=== PATIENT | female | born 1995 | race Caucasian/White ===

== ENCOUNTER 2019-04-03 02:20 | Inpatient (IN) ==
[2019-04-03] MEDS ORDERED: LACTATED RINGER'S 1,000 ML IV PRN (03:11)
[2019-04-03] MEDS ORDERED: PENICILLIN G POTASSIUM 6 MU in DEXTROSE 5% 250 ML IV ONE (03:13)
[2019-04-03 03:40] LABS: Hematocrit (blood only) 34.6 % (37-47); Hemoglobin 11.5 g/dL (12.0-16.0); Mean Corpuscular Hemoglobin 28.7 pg (25-34); Mean Corpuscular Volume 86.3 fL (80-100); Mean Platelet Volume 10.6 fL (7.4-10.4); Platelet Count 351 K/uL (130-400); RDW Coefficient of Variation 14.4 % (11.5-14.5); RDW Standard Deviation 44.4 fL (36.4-46.3); Red Blood Count 4.01 M/uL (4.2-5.4); White Blood Count 15.68 K/uL (4.8-10.8)
[2019-04-03 03:43] LABS: Mean Corpuscular Hgb Conc 33.2 g/dL (32-36)
[2019-04-03] MEDS ORDERED: BUTORPHANOL TARTRATE 1 MG/ML VIAL IV PRN (06:30)
[2019-04-03] MEDS ORDERED: fentaNYL 2MCG/ML ROPIV 1.25MG/ML 100 ML BAG EPI ONE (07:40)
[2019-04-03] MEDS ORDERED: ePHEDrine sulfate 50 MG/ML AMP ONE (07:40)
[2019-04-03] MEDS ORDERED: fentaNYL citrate 100 MCG/2 ML VIAL ONE (07:40)
[2019-04-03] MEDS ORDERED: BUPIVACAINE 0.25% 30 ML VIAL ONE ×2 (07:40→10:11)
[2019-04-03] MEDS: PENICILLIN G POTASSIUM 3 MU in DEXTROSE 5% 100 ML IV PRN ×2 (07:50→11:51)
--- NOTE | 2019-04-03 07:52 | Anesthesiology Consultation ---
Date of Service April 03, 2019 Assessment & Plan (1) Encounter for pre-operative examination: Chart Review Chart Review: Acceptable Risk for Labor Epidural Consults Requested none ASA ASA2 Proposed Anesthesia Anesthesia Type: Labor Epidural Risk / Benefits Reviewed With: PT / POA / Parent / Guardian, Accepts Plan and Informed Consent Obtained History Height/Weight Height: 5 ft 5 in Weight: 86.636 kg Allergies Allergy/AdvReac Type Severity Reaction Status Date / Time oxycodone Allergy Intermediate Rash/Hives Verified 04/03/19 02:34 Medications Home Medications Medication Instructions Recorded Confirmed Last Taken PNV cmb#95-ferrous fumarate-FA 1 tab PO DAILY 10/08/18 04/03/19 04/02/19 18:00 [] ferrous sulfate [iron] 325 mg PO DAILY 04/03/19 04/03/19 04/02/19 08:00 Active Medications Generic Name Dose Route Start Last Admin Trade Name Freq PRN Reason Stop Dose Admin Lactated Ringer's 1,000 mls @ 125 mls/hr 04/03/19 03:11 04/03/19 06:51 Lr IV 04/05/19 03:10 125 mls/hr .Q8H PRN Infusion L&D Protocol Protocol Penicillin G Potassium 3 mu/ 106 mls @ 100 mls/hr 04/03/19 03:15 04/03/19 07:50 Dextrose IV 04/17/19 03:14 100 mls/hr Q4H PRN Administration .GBS POSITIVE Protocol Past Medical History Medical History No significant past medical history Exercise / Class Metabolic Activity II 4-5 Yardwork/Stairs/Walk up hill Past Surgical History Surgical History History of tonsillectomy [place] teeth removed Past Anesthesia History No Hx of Anesthesia Complications and No Family Hx of Anesthesia Complications History of PONV No Hx of PONV and No Hx of Motion Sickness Social History Smoking Status: Never smoker Hx Alcohol Use: No Hx Substance Use: No substance use type: does not use Physical Exam Vital Signs Last Vital Signs Temp 98.6 F 04/03/19 05:40 Pulse 112 H 04/03/19 07:46 Resp 18 04/03/19 04:47 BP 123/74 04/03/19 07:28 Pulse Ox 100 04/03/19 07:46 ENMT Mouth: no dentition abnormality Thyromental Distance: > or= 3.5 Finger Breadths Mallampati Class: II Neck normal visual inspection Respiratory normal respiratory effort Auscultation: lungs clear to auscultation bilaterally Cardiovascular Rate/Rhythm: regular rate and regular rhythm Testing Laboratory Results 04/03/19 03:24
[2019-04-03] MEDS ORDERED: NALBUPHINE HCL INJ 10 MG/ML AMP IV PRN (08:13)
[2019-04-03] MEDS ORDERED: DiphenhydrAMINE HCL 50 MG/ML VIAL IV PRN (08:13)
[2019-04-03] MEDS ORDERED: ePHEDrine sulfate 50 MG/ML AMP IV PRN (08:13)
[2019-04-03] MEDS ORDERED: NALOXONE HCL 1 MG in SODIUM CHLORIDE 0.9% 1000ML 1,000 ML IV PRN (08:13)
[2019-04-03] MEDS ORDERED: ONDANSETRON INJ 2 MG/ML 2 ML VIAL IV PRN (08:13)
[2019-04-03] MEDS ORDERED: fentaNYL 2MCG/ML ROPIV 1.25MG/ML 100 ML BAG EPI PRN (08:13)
[2019-04-03] MEDS ORDERED: NALOXONE HCL 0.4 MG/1 ML VIAL/CARP IV PRN (08:13)
--- NOTE | 2019-04-03 10:31 | Anesthesiology Progress Note ---
Date of Service April 03, 2019 Subjective Pt stated having increasing labor pains on her R lower abdomen. The patient's cervix has dilated to 9 cm. Her epidural was bolused with 50 mcg of fentanyl and 5 mL of 0.125% bupivacaine. VSS throughout. tracings were normal. The patient stated having improved labor pains after the bolus. Physical Exam Vital Signs: Last Vital Signs Temp 98.4 F 04/03/19 10:15 Pulse 96 H 04/03/19 10:21 Resp 18 04/03/19 08:20 BP 111/64 04/03/19 10:21 Pulse Ox 93 04/03/19 10:11 Results & Data Medications Administered Lactated Ringer's (Lr) 1,000 mls @ 125 mls/hr IV .Q8H PRN; Protocol PRN Reason: L&D Protocol Stop: 04/05/19 03:10 Last Infusion: 04/03/19 06:51 Dose: 125 mls/hr Documented by: [id number] Infusion: 04/03/19 03:48 Dose: 0 mls/hr Documented by: [id number] Admin: 04/03/19 03:29 Dose: 125 mls/hr Documented by: [id number] Penicillin G Potassium 3 mu/ (Dextrose) 106 mls @ 100 mls/hr IV Q4H PRN; Protocol PRN Reason: .GBS POSITIVE Stop: 04/17/19 03:14 Last Admin: 04/03/19 07:50 Dose: 100 mls/hr Documented by: [id number]
[2019-04-03] MEDS ORDERED: miSOPROStoL 200 MCG TAB ONE (14:29)
[2019-04-03] MEDS ORDERED: METHYLERGONOVINE MALEATE 0.2 MG/ML AMP ONE (14:29)
[2019-04-03] MEDS: OXYTOCIN 30 UNITS/500 ML BAG IV PRN ×2 (14:29→15:20)
[2019-04-03] MEDS ORDERED: miSOPROStoL 200 MCG TAB PR ONE (15:09)
[2019-04-03] MEDS ORDERED: ACETAMINOPHEN 325 MG TAB PO PRN (15:09)
[2019-04-03] MEDS ORDERED: METHYLERGONOVINE MALEATE 0.2 MG/ML AMP IM ONE (15:09)
[2019-04-03] MEDS ORDERED: SUPERCREAM 0.870% 15 GM JAR EXT PRN (15:09)
[2019-04-03] MEDS ORDERED: DIPHTHERIA/TETANUS/PERTUSSIS 0.5 ML SYR/VIAL IM ONE (15:09)
[2019-04-03] MEDS ORDERED: HYDROCORTISONE ACETATE 25 MG SUPP PR PRN (15:09)
[2019-04-03] MEDS ORDERED: OXYTOCIN 30 UNITS/500 ML BAG IV PRN (15:09)
[2019-04-03] MEDS ORDERED: BENZOCAINE 20% AER SPR 82.5 GM CAN EXT PRN (15:09)
--- NOTE | 2019-04-03 15:10 | Anesthesia Procedure Note ---
Date of Service April 03, 2019 Anesthesia Post Epidural Note Vital Signs Vital Signs: Temp Pulse Resp BP Pulse Ox 98.1 F 95 H 18 132/93 96 04/03/19 12:09 04/03/19 15:04 04/03/19 12:04/03/19 15:04 04/03/19 14:25 Notes Mental Status: alert / awake / arousable and participated in evaluation Nausea / Vomiting: adequately controlled Pain: adequately controlled Airway Patency, RR, SpO2: stable & adequate BP & HR: stable & adequate Hydration State: stable & adequate Neuraxial Anesthesia: was administered and sensory block is resolving Anesthetic Complications: no major complications apparent and Pt Satisfied with anesthetic care Epidural: Removed without complications and With tip intact
[2019-04-03] MEDS ORDERED: MoRPHine SULFATE PF 1 MG/ML 10 ML AMP/VIAL ONE (15:15)
--- NOTE | 2019-04-03 15:21 | Delivery Summary ---
DATE OF OPERATION: 04/03/2019 The patient delivered a live infant in left occiput anterior presentation. There was no nuchal cord. was delivered and placed on mother's abdomen. Cord was clamped and cut after 1 minute. The 's weight and Apgars in the pediatric record. Cord blood was obtained. Placenta was spontaneously delivered. Inspection of the placenta shows a 3-vessel cord. Inspection of the perineum showed second-degree midline laceration, which was repaired in layers with Vicryl stitch. Rectal exam post repair showed good sphincter tone, no sutures are palpated in the rectum. Estimated blood loss is 400 mL. The patient and baby are doing well in recovery. All instruments are removed from the vagina including sponges, needles and retractors and accounted for x2. I attest to the content of the Intraoperative Record and any orders documented therein. Any exception s are noted below.
[2019-04-03] MEDS: IBUPROFEN 600 MG TAB PO PRN ×2 (16:49→21:33)
[2019-04-03] MEDS ORDERED: OXYTOCIN 20 UNITS in LACTATED RINGER'S 1,000 ML IV SCH (20:45)
[2019-04-03] MEDS: DOCUSATE SODIUM 100 MG CAP PO SCH (21:33)
[2019-04-04 06:02] LABS: Hematocrit (blood only) 32.2 % (37-47); Hemoglobin 10.8 g/dL (12.0-16.0); Mean Corpuscular Hemoglobin 28.8 pg (25-34); Mean Corpuscular Hgb Conc 33.5 g/dL (32-36); Mean Corpuscular Volume 85.9 fL (80-100); Mean Platelet Volume 10.6 fL (7.4-10.4); Platelet Count 285 K/uL (130-400); RDW Coefficient of Variation 14.7 % (11.5-14.5); RDW Standard Deviation 45.2 fL (36.4-46.3); Red Blood Count 3.75 M/uL (4.2-5.4); White Blood Count 19.71 K/uL (4.8-10.8)
[2019-04-04] MEDS: FERROUS SULFATE 325 MG TAB PO SCH (07:36)
[2019-04-04] MEDS: PRENATAL VITAMIN 1 TAB PO SCH (07:36)
[2019-04-04] MEDS: DOCUSATE SODIUM 100 MG CAP PO SCH ×2 (07:36→20:49)
--- NOTE | 2019-04-04 08:48 | Obstetrical Progress Note ---
Date of Service April 04, 2019 Subjective doing well out of bed and tolerating diet passing gas Physical Exam Constitutional: WD/WN, vitals as above comfortable no edema neg Aneta's tent d/c in AM Results & Data Vital Signs (Past 12 Hours) Vital Signs Temp Pulse Resp BP 04/04/19 03:30 36.5 C 79 18 118/80 04/03/19 23:11 36.8 C 83 18 122/97 Laboratory Results Laboratory Results - last 48 hr 04/03/19 04/04/19 03:24 05:45 WBC 15.68 H 19.71 H RBC 4.01 L 3.75 L Hgb 11.5 L 10.8 L Hct 34.6 L 32.2 L MCV 86.3 85.9 MCH 28.7 28.8 MCHC 33.2 33.5 RDW Std Deviation 44.4 45.2 RDW Coeff of Pat 14.4 14.7 H Plt Count 351 285 MPV 10.6 H 10.6 H
[2019-04-04] MEDS: IBUPROFEN 600 MG TAB PO PRN ×2 (11:37→19:44)
[2019-04-04] MEDS ORDERED: bisacodyL 5 MG TABEC PO SCH (20:00)
[2019-04-05] MEDS: IBUPROFEN 600 MG TAB PO PRN (03:13)
[2019-04-05 07:05] LABS: Hematocrit (blood only) 31.7 % (37-47); Hemoglobin 10.6 g/dL (12.0-16.0)
[2019-04-05] MEDS: FERROUS SULFATE 325 MG TAB PO SCH (08:41)
[2019-04-05] MEDS: PRENATAL VITAMIN 1 TAB PO SCH (08:41)
[2019-04-05] MEDS: DOCUSATE SODIUM 100 MG CAP PO SCH (08:41)
[2019-04-05] MEDS ORDERED: bisacodyL 10 MG SUPP PR PRN (09:00)
--- NOTE | 2019-04-05 09:39 | Obstetrical Progress Note ---
Date of Service April 05, 2019 Subjective doing well passing gas tolerating diet ambulating well Physical Exam Constitutional: WD/WN, vitals as above comfortable fundus firm for d/c Results & Data Vital Signs (Past 12 Hours) Vital Signs Temp Pulse Resp BP Pulse Ox 04/04/19 23:30 36.7 C 75 18 117/81 99 Laboratory Results Laboratory Results - last 48 hr 04/04/19 04/05/19 05:45 06:13 WBC 19.71 H RBC 3.75 L Hgb 10.8 L 10.6 L Hct 32.2 L 31.7 L MCV 85.9 MCH 28.8 MCHC 33.5 RDW Std Deviation 45.2 RDW Coeff of Pat 14.7 H Plt Count 285 MPV 10.6 H
== END 2019-04-05 11:40 | disposition home or self-care (01) | DRG 807 ==
LOC: OPB 02:20 → 4S1 02:21 → 4S2 18:32

== ENCOUNTER 2021-03-31 18:11 | Inpatient (IN) ==
[2021-03-31] MEDS: LACTATED RINGER'S 1,000 ML IV PRN ×2 (18:30→18:58)
[2021-03-31] MEDS ORDERED: OXYTOCIN 30 UNITS/500 ML BAG IV PRN ×2 (18:36→20:31)
[2021-03-31] MEDS ORDERED: BUPIVACAINE 0.25% 30 ML VIAL ONE (18:46)
[2021-03-31] MEDS ORDERED: SODIUM CHLORIDE 0.9% INJ 10 ML VIAL ONE (18:46)
[2021-03-31] MEDS ORDERED: fentaNYL citrate 100 MCG/2 ML VIAL ONE (18:46)
[2021-03-31] MEDS ORDERED: ePHEDrine sulfate 50 MG/ML AMP ONE (18:46)
[2021-03-31] MEDS ORDERED: fentaNYL 2MCG/ML ROPIVACAINE 1.25MG/ML 100 ML BAG EPI ONE (18:46)
[2021-03-31 19:03] LABS: Hematocrit (blood only) 37.1 % (37-47); Hemoglobin 12.4 g/dL (12.0-16.0); Mean Corpuscular Hemoglobin 29.6 pg (25-34); Mean Corpuscular Volume 88.5 fL (80-100); Mean Platelet Volume 10.1 fL (7.4-10.4); Platelet Count 326 K/uL (130-400); RDW Coefficient of Variation 15.3 % (11.5-14.5); RDW Standard Deviation 49.2 fL (36.4-46.3); Red Blood Count 4.19 M/uL (4.2-5.4); White Blood Count 16.25 K/uL (4.8-10.8)
[2021-03-31 19:07] LABS: Mean Corpuscular Hgb Conc 33.4 g/dL (32-36)
[2021-03-31] MEDS ORDERED: ePHEDrine sulfate 50 MG/ML AMP IV PRN (19:13)
[2021-03-31] MEDS ORDERED: NALOXONE HCL 0.4 MG/1 ML VIAL/CARP IV PRN (19:13)
[2021-03-31] MEDS ORDERED: NALOXONE HCL 1 MG in SODIUM CHLORIDE 0.9% 1000ML 1,000 ML IV PRN (19:13)
[2021-03-31] MEDS ORDERED: diphenhydrAMINE 50 MG/ML VIAL IV PRN (19:13)
[2021-03-31] MEDS ORDERED: NALBUPHINE HCL INJ 10 MG/ML AMP IV PRN (19:13)
[2021-03-31] MEDS ORDERED: ONDANSETRON INJ 2 MG/ML 2 ML VIAL IV PRN (19:13)
[2021-03-31] MEDS ORDERED: fentaNYL 2MCG/ML ROPIVACAINE 1.25MG/ML 100 ML BAG EPI PRN (19:13)
--- NOTE | 2021-03-31 19:15 | Anesthesiology Consultation ---
Date of Service March 31, 2021 Assessment & Plan (1) Encounter for pre-operative examination: Chart Review Chart Review: Acceptable Risk for Labor Epidural Consults Requested none ASA ASA2 Proposed Anesthesia Anesthesia Type: Labor Epidural Risk / Benefits Reviewed With: PT / POA / Parent / Guardian, Accepts Plan and Informed Consent Obtained History Height/Weight Height: 5 ft 5 in Weight: 90.718 kg Allergies Allergy/AdvReac Type Severity Reaction Status Date / Time oxycodone Allergy Intermediate Rash/Hives Verified 04/20/19 00:09 Medications Home Medications Medication Instructions Recorded Confirmed Last Taken vits no.124-ferrous fum 1 tab PO DAILY 03/31/21 03/31/21 03/30/21 27 mg iron-folic acid 800 mcg tablet ( Vitamin) Active Medications Generic Name Dose Route Start Last Admin Trade Name Freq PRN Reason Stop Dose Admin Lactated Ringer's 1,000 mls @ 125 mls/hr 03/31/21 18:36 03/31/21 18:30 Lr IV 04/02/21 18:35 999 mls/hr .Q8H PRN Administration L&D Protocol Protocol Past Medical History Medical History No chronic problems Exercise / Class Metabolic Activity II 4-5 Yardwork/Stairs/Walk up hill Past Family History Family History Other No significant family history Past Surgical History Surgical History History of tonsillectomy [place] teeth removed Past Anesthesia History No Hx of Anesthesia Complications and No Family Hx of Anesthesia Complications History of PONV No Hx of PONV and No Hx of Motion Sickness Social History Smoking Status: Never smoker Hx Alcohol Use: No Hx Substance Use: No substance use type: does not use Physical Exam Vital Signs Last Vital Signs Temp 98.6 F 03/31/21 19:04 Pulse 88 03/31/21 19:02 Resp 18 03/31/21 19:04 BP 129/75 03/31/21 19:02 ENMT Mouth: no dentition abnormality Thyromental Distance: > or= 3.5 Finger Breadths Mallampati Class: II Neck normal visual inspection Respiratory normal respiratory effort Auscultation: lungs clear to auscultation bilaterally Cardiovascular Rate/Rhythm: regular rate and regular rhythm Testing Laboratory Results 03/31/21 18:56
[2021-03-31] MEDS ORDERED: HYDROCORTISONE ACETATE 25 MG SUPP PR PRN (20:31)
[2021-03-31] MEDS ORDERED: SUPERCREAM 0.870% 15 GM JAR EXT PRN (20:31)
[2021-03-31] MEDS ORDERED: bisacodyL 10 MG SUPP PR PRN (20:31)
[2021-03-31] MEDS ORDERED: DIPHTHERIA/TETANUS/PERTUSSIS 0.5 ML SYR/VIAL IM ONE (20:31)
[2021-03-31] MEDS ORDERED: BENZOCAINE 20% AER SPR 82.5 GM CAN EXT PRN (20:31)
[2021-03-31] MEDS ORDERED: ACETAMINOPHEN 325 MG TAB PO PRN (20:31)
--- NOTE | 2021-03-31 20:35 | History & Physical Report ---
Date of Service March 31, 2021 Assessment & Plan (1) : Plan: Admit in active labor Admission and Anticipated Discharge Date Admission Date: March 31, 2021 History of Present Illness Chief Complaint: term in labor Primary Care Provider: MARGIE PCP 26 F P1001 at 39.6 weeks admitted in labor. GBS is negative. Covid is negative. Allergies Allergy/AdvReac Type Severity Reaction Status Date / Time oxycodone Allergy Intermediate Rash/Hives Verified 04/20/19 00:09 Home Medications Medication Instructions Recorded Confirmed Type vits no.124-ferrous fum 1 tab PO DAILY 03/31/21 03/31/21 History 27 mg iron-folic acid 800 mcg tablet ( Vitamin) Patient History Medical History No chronic problems Surgical History History of tonsillectomy [place] teeth removed Family History Other No significant family history Social History Smoking Status: Never smoker Second Hand Exposure: No; Hx Alcohol Use: No Hx Substance Use: No Preferred Language: [place] Communication Ability: Effective Equalizing Saw Operator Required: No Beliefs That Will Affect Care: None marital status: Single Current Living Situation: Family and Significant Other Feels Safe at Home: Yes Safety Concerns: Feels Safe At This Time Assistive Devices: Glasses OB History x1 Review of Systems All systems reviewed & are unremarkable except as noted in HPI & below Physical Exam Constitutional: WD/WN, vitals as above Eyes: PERRL, conjunctivae normal, anicteric sclerae Respiratory: normal respiratory effort, lungs clear to auscultation Gastrointestinal (Abdomen): normal bowel sounds, soft, nontender, no hepatosplenomegaly Skin: no rashes, warm and dry Neurologic: patellar DTR's 2+ bilat, sensation intact Psychiatric: A+Ox3, euthymic affect Genitourinary: no vaginal lesions, no adnexal mass Manual OB Exam: + cervical dilation 6 cm, + cervical effacement 100% and + station -1 OB Exam Monitor Tracing: + external FHT monitor used, + external uterine monitor used, + category I and + normal FHT variability Results & Data ([facility]) Vital Signs (Past 12 Hours) Vital Signs Temp Pulse Resp BP Pulse Ox 03/31/21 20:24 112 H 141/63 H 03/31/21 20:20 109 H 100 03/31/21 20:15 97 H 99 03/31/21 20:10 123 H 100 03/31/21 20:05 129 H 100 03/31/21 20:00 114 H 100 03/31/21 19:55 110 H 100 03/31/21 19:50 112 H 117/54 L 100 03/31/21 19:45 114 H 99 03/31/21 19:40 96 H 100 03/31/21 19:35 119 H 100 03/31/21 19:30 111 H 100 03/31/21 19:25 110 H 100 03/31/21 19:21 105 H 139/79 03/31/21 19:20 99 H 100 03/31/21 19:04 37.0 C 18 03/31/21 19:02 88 129/75 03/31/21 18:18 107 H 139/82 03/31/21 18:14 37.0 C 18 Laboratory Results 03/31/21 03/31/21 18:09 18:56 WBC 16.25 H RBC 4.19 L Hgb 12.4 Hct 37.1 MCV 88.5 MCH 29.6 MCHC 33.4 RDW Std Deviation 49.2 H RDW Coeff of Pat 15.3 H Plt Count 326 MPV 10.1 SARS-CoV-2, RNA, NAAT NEGATIVE Monitoring External Monitor Cat 1
--- NOTE | 2021-03-31 20:38 | Anesthesia Procedure Note ---
Date of Service March 31, 2021 Anesthesia Post Epidural Note Vital Signs Vital Signs: Temp Pulse Resp BP Pulse Ox 98.6 F 112 H 18 141/63 H 100 03/31/21 19:04 03/31/21 20:24 03/31/21 20:20 03/31/21 20:24 03/31/21 20:20 Pain Intensity Lower Abdomen: Pain Intensity: 10 Notes Mental Status: alert / awake / arousable and participated in evaluation Nausea / Vomiting: adequately controlled Pain: adequately controlled Airway Patency, RR, SpO2: stable & adequate BP & HR: stable & adequate Hydration State: stable & adequate Neuraxial Anesthesia: was administered and sensory block is resolving Anesthetic Complications: no major complications apparent and Pt Satisfied with anesthetic care Epidural: Removed without complications and With tip intact
--- NOTE | 2021-03-31 20:41 | Delivery Summary ---
Vaginal Delivery Summary Date of Service March 31, 2021 Vaginal Delivery Summary Delivery Note live female FAUSTINO over intact perineum with delayed cord clamping and Apgars 8/9 weight pending. Cord blood obtained followed by spontaneous delivery of intact placenta. No tears. EBL 100 ml. Final sponge and instrument count are correct. Mom and baby stable.
[2021-03-31] MEDS ORDERED: DOCUSATE SODIUM 100 MG CAP PO SCH (21:00)
[2021-03-31] MEDS: IBUPROFEN 600 MG TAB PO PRN (22:40)
[2021-04-01] MEDS: IBUPROFEN 600 MG TAB PO PRN ×3 (03:18→17:29)
[2021-04-01 06:40] LABS: Hematocrit (blood only) 32.6 % (37-47); Hemoglobin 10.9 g/dL (12.0-16.0); Mean Corpuscular Hemoglobin 29.9 pg (25-34); Mean Corpuscular Hgb Conc 33.4 g/dL (32-36); Mean Corpuscular Volume 89.6 fL (80-100); Mean Platelet Volume 10.5 fL (7.4-10.4); Platelet Count 315 K/uL (130-400); RDW Coefficient of Variation 15.4 % (11.5-14.5); RDW Standard Deviation 50.6 fL (36.4-46.3); Red Blood Count 3.64 M/uL (4.2-5.4); White Blood Count 19.44 K/uL (4.8-10.8)
[2021-04-01] MEDS ORDERED: PRENATAL VITAMIN 1 TAB PO SCH ×2 (08:00→09:00)
--- NOTE | 2021-04-01 08:13 | Obstetrical Progress Note ---
Date of Service April 01, 2021 Subjective Ambulation: ambulating normally Voiding: no voiding problems Passing Gas:: Yes Diet Tolerance:: regular diet Lochia:: Small Feeding Type:: breast feeding Current Pain Level(1-10): 0 doing well plans to go home tonight Physical Exam Constitutional WD/WN, vitals as above well groomed and comfortable abdomen soft and non-tender no edema neg Aneta's stable for d/c Results & Data ([facility]) Vital Signs (Past 12 Hours) Vital Signs Temp Pulse Pulse Resp BP BP Pulse Ox 04/01/21 03:10 36.4 C L 82 18 128/85 98 03/31/21 23:35 36.7 C 88 16 123/78 98 03/31/21 22:34 100 H 130/66 03/31/21 22:20 18 03/31/21 21:50 18 03/31/21 21:39 102 H 119/59 L 03/31/21 21:23 96 H 126/65 03/31/21 21:20 18 03/31/21 21:08 97 H 127/68 03/31/21 21:05 18 03/31/21 20:53 95 H 135/72 03/31/21 20:50 18 03/31/21 20:38 93 H 132/62 03/31/21 20:35 18 03/31/21 20:24 112 H 141/63 H 03/31/21 20:20 109 H 18 100 03/31/21 20:15 97 H 99 03/31/21 20:12 18 Laboratory Results 03/31/21 03/31/21 04/01/21 18:09 18:56 06:11 WBC 16.25 H 19.44 H RBC 4.19 L 3.64 L Hgb 12.4 10.9 L Hct 37.1 32.6 L MCV 88.5 89.6 MCH 29.6 29.9 MCHC 33.4 33.4 RDW Std Deviation 49.2 H 50.6 H RDW Coeff of Pat 15.3 H 15.4 H Plt Count 326 315 MPV 10.1 10.5 H SARS-CoV-2, RNA, NAAT NEGATIVE
[2021-04-01] MEDS ORDERED: bisacodyL 5 MG TABEC PO SCH (20:00)
== END 2021-04-01 21:15 | disposition home or self-care (01) | DRG 807 ==
LOC: OPB 18:11 → 4S1 18:13 → 4S2 22:30